=== PATIENT | female | born 1970 | race Hispanic/Latino ===

== ENCOUNTER → 2024-03-17 | Outpatient (CLI) | payer MEDICAID ==
[~2024-03-17] MED LIST: ACET-2079 PO; METO-296 PO; PANT40TA PO; TAMS-1 PO
--- NOTE | 2024-03-17 20:29 | HMCSR ---
APPROVED REPORT EXAM: Two-dimensional and M-mode echocardiogram with Doppler and color Doppler. INDICATION ICD: R94.31 Abnormal electrocardiogram 2D Dimensions RVDd3.4 cmLVEF(%)62.2 (>50%)LVED Vol(simp.)62.9 mL IVSd1.2 (0.7-1.1cm)FS(%)32 %LVES Vol(simp.)28.5 mL LVDd2.8 (3.8-5.6cm)LA (2D)3.1 (1.6-4.0cm)LVEF(%, simp.)55 % PWd1.2 (0.7-1.1cm)Ao Root(2D)2.6 (2.0-3.7cm)LA ESV INDEX (4CH)19.10 mL/m2 IVSs1.7 cmLVOT diam2.2 (1.8-2.4cm)LA ESV INDEX (2CH)15.80 mL/m2 LVDs1.9 (2.5-4.0cm)LA ESV INDEX (BP)19.10 mL/m2 PWs1.6 cm M-Mode Dimensions EPSS0.6 cm LA (MM)2.9 (1.6-4.0cm) Ao Root(MM)2.4 (2.0-3.7cm) Aortic Valve AoV VTI0.3 mAo Mean GR4.0 mmHgLVOT VTI0.15 m CAT (VMAX)2.3 cm2AVA (VTI) 2.3 cm2 Mitral Valve MV E Vmax70.3 cm/sDECEL [id number] ms MV A Vmax70.8 cm/sP 1/2 T39 ms E/A ratio1.0MVA (PHT)5.7 cm2 TDI E/E' Rpsbfm81.3E/E' Kvxowdj48.0 Medial E' Peak V5.30 cm/sLateral E' Peak V5.40 cm/s Left Ventricle The left ventricle is normal size. Normal wall motion Mild concentric left ventricular hypertrophy. T he LVEF is > 55%. Normal diastolic function Right Ventricle The right ventricle is normal size. The right ventricular systolic function is normal. Atria The left atrium size is normal. The right atrium size is normal. Aortic Valve The aortic valve is normal in structure. No aortic regurgitation is present. There is no aortic valvu lar stenosis. Mitral Valve The mitral valve is normal in structure. There is no mitral valve regurgitation noted. There is no mi tral valve stenosis. Tricuspid Valve The tricuspid valve is normal in structure. There is no tricuspid valve regurgitation noted. Pulmonic Valve The pulmonary valve is normal in structure. There is no pulmonic valvular regurgitation. Great Vessels The aortic root is normal in size. The IVC is normal in size and collapses >50% with inspiration. Pericardium There is no pericardial effusion. Other Information Quality : Adequate Conclusion The LVEF is > 55%. Mild concentric left ventricular hypertrophy. The left ventricle is normal size. Normal diastolic function There is no pericardial effusion. Normal pulmonary pressures Stduy quality was adequate
== END | disposition home or self-care (01) ==
LOC: RAH 09:35
PROVIDERS: ATTEND Internal Medicine Cardiovascular Disease
DX: R94.31 Abnormal electrocardiogram [ECG] [EKG] (principal)
CPT/HCPCS: 93306